=== PATIENT | female | born 2005 | race Caucasian/White ===

== ENCOUNTER 2023-01-23 12:30 | Emergency (ER) | payer OTHER ==
[2023-01-23 12:30] VITALS: O2SAT 99
[2023-01-23] MEDS ORDERED: DEXAMETHASONE 4 MG TAB PO STA (13:04)
[2023-01-23] MEDS ORDERED: MUCINEX DM ER1 EAC1 PO (13:11)
== END 2023-01-23 13:55 | disposition home or self-care (01) ==
LOC: ER 12:59
DX: R05.9 Cough, unspecified (principal); R09.89 Other specified symptoms and signs involving the circulatory and respiratory systems; G40.909 Epilepsy, unspecified, not intractable, without status epilepticus
CPT/HCPCS: 99283; J8540